=== PATIENT | male | born 1990 | race Two or more races ===

== ENCOUNTER 2022-02-03 10:47 | Outpatient (CLI) | payer OTHER | END 2022-02-03 10:49 | disposition home or self-care (01) | LOC: LAB 10:47 | PROVIDERS: ATTEND Orthopaedic Surgery | DX: D64.9 Anemia, unspecified (principal); E88.9 Metabolic disorder, unspecified; D68.8 Other specified coagulation defects; N39.0 Urinary tract infection, site not specified; A49.02 Methicillin resistant Staphylococcus aureus infection, unspecified site; E11.9 Type 2 diabetes mellitus without complications; I49.9 Cardiac arrhythmia, unspecified; I10 Essential (primary) hypertension; Z76.89 Persons encountering health services in other specified circumstances ==

== ENCOUNTER 2022-02-04 06:47 | Day surgery (SDC) | payer OTHER | END 2022-02-04 16:00 | disposition home or self-care (01) | LOC: CIR.AMB 06:47 | PROVIDERS: ATTEND Orthopaedic Surgery | DX: S42.224A 2-part nondisplaced fracture of surgical neck of right humerus, initial encounter for closed fracture (principal); Z20.822 Contact with and (suspected) exposure to COVID-19; Z91.013 Allergy to seafood; Z87.891 Personal history of nicotine dependence; M75.111 Incomplete rotator cuff tear or rupture of right shoulder, not specified as traumatic | CPT/HCPCS: 24516; 23120; 23420; L8699 ==